=== PATIENT | female | born 1995 | race Caucasian/White ===

== ENCOUNTER 2018-06-20 16:14 | Emergency (ER) | payer BC ==
[~2018-06-20] VITALS: Ht 165.1 cm; Wt 68.4 kg
[2018-06-20 16:23] VITALS: Ht 165.1 cm; Wt 68.4 kg
--- NOTE | 2018-06-20 16:55 | DIAGNOSTIC IMAGING REPORT ---
L HAND MIN 3 VIEWS ROUTINE HISTORY: 23 years-old Female left hand pain, hx. benign bony growth, fall with pain/swelling acute left hand pain status post fall COMPARISON: None available TECHNIQUE: 3 views of the left hand FINDINGS: No acute fracture, dislocation, significant degenerative changes or opaque foreign body. Soft tissues are within normal limits. IMPRESSION: No acute fracture. The above report was generated using voice recognition software. It may contain grammatical, syntax or spelling errors. Electronically signed by: Jorge Chauhan M.D. 06/20/2018 4:54 PM Dictated Date/Time: 06/20/2018 4:52 PM
[2018-06-20] MEDS ORDERED: BCPILLS PO (17:06)
--- NOTE | 2018-06-20 17:27 | EMERGENCY ROOM VISIT NOTE ---
ED Visit Note First contact with patient: 16:30 CHIEF COMPLAINT: Left hand injury HISTORY OF PRESENT ILLNESS: This 23-year-old femur patient presented to the emergency department, ambulatory, 1 day after they injured the left hand after a fall. The patient states she landed on the dorsal aspect of her left hand. She complains of pain on the lateral aspect over the second and third metacarpals. She does report a history of a benign growth over the second and third metacarpals which has been evaluated by orthopedics. She was encouraged if it caused pain or other symptoms to have the lesion evaluated. The patient reports increased pain and swelling since the fall. The patient rates the pain as sharp and 7/10. The patient denies any numbness or tingling. The patient does not have injuries to the wrist. The patient has not had a previous fracture to this hand. REVIEW OF SYSTEMS: A 6 system review of systems was completed with positives and pertinent negatives in the HPI. ALLERGIES: Monistat MEDICATIONS: None PMH: None SOCIAL HISTORY: The patient is a [employer] student. She lives locally with her roommate. She denies drug, alcohol, tobacco use. PHYSICAL EXAM: Vital Signs: Reviewed Nurse's notes, vital signs stable. GENERAL : This is a 23-year-old white female, in no acute distress, but appears to be in pain, well-developed, well-nourished. MUSCULOSKELETAL: There is no obvious deformity of the left hand. There is tenderness over the proximal aspect of the second and third metacarpals. There is swelling and a bony prominence in this area. There is no thenar or hypothenar eminence atrophy. Normal thumb opposition to all fingers. [employer] Examiner strength 5/5. There is no laceration. Capillary refill less than 2 seconds. No tenderness of the fingers or wrist. Full range of motion of the wrist. No snuff box tenderness. Radial pulse 2+. NEURO: Alert and oriented to person, place, and time. Normal sensation to light and sharp touch. RADIOLOGY: L HAND MIN 3 VIEWS ROUTINE HISTORY: 23 years-old Female left hand pain, hx. benign bony growth, fall with pain/swelling acute left hand pain status post fall COMPARISON: None available TECHNIQUE: 3 views of the left hand FINDINGS: No acute fracture, dislocation, significant degenerative changes or opaque foreign body. Soft tissues are within normal limits. IMPRESSION: No acute fracture. The above report was generated using voice recognition software. It may contain grammatical, syntax or spelling errors. Electronically signed by: Jorge Chauhan M.D. 06/20/2018 4:54 PM Dictated Date/Time: 06/20/2018 4:52 PM EMERGENCY DEPARTMENT COURSE: I examined the patient. An x-ray of the left hand was reviewed by myself and radiologist and shows no acute fracture or obvious abnormality. The patient was offered analgesics and declined. I recommended an Qasim wrap to provide compression, ice, elevation, get the swelling down. I encouraged the patient to follow-up for possible further imaging if no improvement in 1 week. I suspect the increased swelling and pain in the bony growth is related to the contusion/soft tissue swelling of the hand. I discussed with the patient that I expect this to improve within 1 week, however encouraged her to follow-up closely outpatient. The patient verbalized agreement and understanding. Discharge instructions reviewed. The patient was discharged home in good condition. I attest that I have personally reviewed the patient's current medication list. Patient was found to have normal blood pressure on screening and does not require follow-up. Etiologies such as soft tissue injury, fracture, dislocation, neurovascular compromise, compartment syndrome, as well as others were entertained. DIAGNOSIS: Left hand contusion The chart was completed utilizing [employer] voice recognition software. Grammatical errors, random word insertions, pronoun errors, and incomplete sentences are an occasional consequence of this system due to software limitations, ambient noise, and hardware issues. Any formal questions or concerns about the content, text, or information contained within the body of this dictation should be directly addressed to the provider for clarification. (Noa Salazar, JANICE) First contact with patient: 16:30 (Brent Duarte M.D.) Current/Historical Medications Scheduled Control Pills ( Control Pills), 1 TAB PO DAILY Allergies Coded Allergies: No Known Allergies (Unverified , 06/20/18) Vital Signs Date Time Temp Pulse Resp B/P (MAP) Pulse Ox O2 Delivery O2 Flow Rate FiO2 06/20/18 17:38 36.9 78 21 131/88 100 06/20/18 16:23 36.9 81 20 132/84 100 Room Air (Brent Duarte M.D.) Departure Information Impression Primary Impression: Contusion of left hand, initial encounter Dispostion Home / Self-Care Condition GOOD Referrals No Doctor, Assigned (PCP) Patient Instructions ED Contusion Hand, My [facility]
[2018-06-20 17:38] VITALS: BP 131/88; PULSE 78; TEMP 36.9; O2SAT 100
== END 2018-06-20 17:38 | disposition home or self-care (01) ==
LOC: C.EDB 16:17 → C.EDD 17:38
DX: S60.222A Contusion of left hand, initial encounter (principal); W19.XXXA Unspecified fall, initial encounter